=== PATIENT | male | born 1995 | race African-American/Black ===

== ENCOUNTER 2021-04-26 17:03 | Emergency (ER) | payer SELFPAY ==
[~2021-04-26] VITALS: Ht 172.7 cm; Wt 79.0 kg
[2021-04-26] MEDS ORDERED: ACETAMINOPHEN 325MG TABLET PO ONE (17:30)
[2021-04-26] MEDS ORDERED: IBUPROFEN 600MG TABLET PO ONE (18:30)
[2021-04-26 18:36] VITALS: BP 112/82
[2021-04-26] MEDS ORDERED: IBUP-2029 MT (18:39)
== END 2021-04-26 18:56 | disposition home or self-care (01) ==
LOC: ER 18:10
DX: M79.661 Pain in right lower leg (principal); M79.671 Pain in right foot; J45.909 Unspecified asthma, uncomplicated
CPT/HCPCS: 29515; 73610; 73630; 93971; 99284

== ENCOUNTER 2021-11-25 16:18 | Emergency (ER) | payer MEDICAID ==
[~2021-11-25] VITALS: Ht 172.7 cm; Wt 75.0 kg
[~2021-11-25 16:18] MED LIST: IBUP-2029 MT
[2021-11-25 16:59] LABS: BASOPHILS % 0.9 % (0.0-2.0); EOSINOPHILS % 6.6 % (0.0-5.0); HEMATOCRIT. 41.5 % (42.0-52.0); HEMOGLOBIN. 13.9 g/dL (14.0-18.0); LYMPHOCYTES % 21.7 % (20.0-50.0); MEAN CORPUSCULAR HEMOGLOBIN 28.9 pg (28.0-32.0); MEAN CORPUSCULAR VOLUME 86.1 fL (80.0-94.0); MEAN PLATELET VOLUME 8.3 fl (7.4-10.4); MONOCYTES % 10.5 % (2.0-8.0); NEUTROPHILS % 60.3 % (40.0-76.0); PLATELET 201 x1000/uL (130-400); RED BLOOD CELL COUNT 4.81 mill/uL (4.7-6.1); RED CELL DISTRIBUTION WIDTH 13.1 % (11.6-14.6)
[2021-11-25 17:06] LABS: CHLORIDE 107 mEq/L (98-107)
[2021-11-25] MEDS ORDERED: MORPHINE SULFATE 4 MG/ML CPJ (NOT FOR IM USE) IV ONE (18:30)
[2021-11-25] MEDS ORDERED: KETOROLAC 30MG/ML VIAL IV NR (21:00)
[2021-11-25] MEDS ORDERED: IPRATROPIUM BROMIDE (0.02%) 0.5MG/2.5ML NEB HHN STA (21:02)
[2021-11-25] MEDS ORDERED: ALBUTEROL (0.083%) 2.5MG/3ML NEB HHN STA (21:02)
[2021-11-25] MEDS ORDERED: METHYLPREDNISOLONE SOD SUCC 125 MG/2 ML VIAL IV ONE (21:15)
[2021-11-25] MEDS ORDERED: P50 MT (22:13)
[2021-11-25] MEDS ORDERED: HYDR-4001 MT (22:15)
[2021-11-25 22:45] VITALS: BP 121/79
== END 2021-11-25 22:51 | disposition home or self-care (01) ==
LOC: ER 16:18 → CANBEDREQ 11-26 04:38
DX: N50.811 Right testicular pain (principal); J45.901 Unspecified asthma with (acute) exacerbation; Z20.822 Contact with and (suspected) exposure to COVID-19; V29.9XXA Motorcycle rider (driver) (passenger) injured in unspecified traffic accident, initial encounter; Y93.89 Activity, other specified; Y92.488 Other paved roadways as the place of occurrence of the external cause
CPT/HCPCS: 36415; 76870; 80053; 85025; 87426; 93976; 94640; 99284; J2270; Z7610